=== PATIENT | female | born 1990 | race Caucasian/White ===

== ENCOUNTER → 2023-04-24 12:00 | Outpatient (CLI) | payer MEDICAID, SELFPAY ==
[2023-04-24 18:58] LABS: Basophils # 0.1 K/mm3 (0-0.2); Basophils % 0.5 % (0.1-2.0); Eosinophils # 0.2 K/mm3 (0.0-0.4); Eosinophils % 1.8 % (0.1-12.0); Hematocrit 48.1 % (37.0-47.0); Hemoglobin 15.8 g/dL (12.2-16.2); Lymphocytes % 18.4 % (10-50); Mean Corpuscular HGB Conc 32.8 g/dL (31.8-35.4); Mean Corpuscular Hemoglobin 28.2 pg (27.0-31.2); Mean Platelet Volume 10.2 fl (7.4-10.4); Monocytes # 0.5 K/mm3 (0.1-1.0); Monocytes % 4.2 % (1.7-9.3); Neutrophils # 8.2 K/mm3 (1.8-7.8); Neutrophils % 75.1 % (37.0-80.0); Platelet Count 347 K/mm3 (142-424); Red Blood Count 5.59 M/mm3 (4.20-5.40); Red Cell Distribution Width 13.6 % (11.5-17.5); White Blood Count 10.9 K/mm3 (4.8-10.8)
[2023-04-24 19:07] LABS: Alanine Aminotransferase 18 U/L (12-78); Albumin Level 4.4 g/dl (3.5-5.0); Albumin/Globulin Ratio 1.4 (1.1-1.8); Alkaline Phosphatase 83 U/L (38-126); Anion Gap 15.4 mEq/L (5-15); Aspartate Amino Transferase 23 U/L (14-36); Bilirubin,Total 0.4 mg/dl (0.2-1.3); Blood Urea Nitrogen 11 mg/dl (7-17); Calcium 9.1 mg/dl (8.4-10.2); Carbon Dioxide 24 mmol/L (22.0-30.0); Chloride 106 mmol/L (98-107); Chol/HDL Ratio 3.5 (1-3.5); Cholesterol 201 mg/dl (140-200); Estimated Glomerular Filt Rate 97 ml/min (>60); GFR (African American) 117 ML/MIN (>60); Globulin 3.2 g/dL (1.3-3.2); Glucose 111 mg/dl (74-100); HDL Cholesterol 58 mg/dl (40-60); Potassium 4.4 mmoL/L (3.5-5.1); Sodium 141 mmol/L (136-145); Total Protein,Serum 7.6 g/dl (6.3-8.2); Triglycerides 203 mg/dl (30-150); VLDL Cholesterol 41 mg/dL (0-40)
[2023-04-24 19:22] LABS: Direct LDL Cholesterol 108.17 mg/dL (100-129)
[2023-04-24 19:39] LABS: Thyroid Stimulating Hormone 1.06 uIU/mL (0.465-4.68)
== END ==
PROVIDERS: PCP Nurse Practitioner Family; Visit Provider Nurse Practitioner Family
DX: F41.9 Anxiety disorder, unspecified (principal); E55.9 Vitamin D deficiency, unspecified; Z79.899 Other long term (current) drug therapy
CPT/HCPCS: 80053; 80061; 82306; 84443; 85025

== ENCOUNTER 2024-07-07 14:23 | Outpatient (CLI) | payer MEDICAID, SELFPAY ==
[2024-07-07 18:49] LABS: Alanine Aminotransferase 19 U/L (12-78); Albumin Level 4.1 g/dl (3.5-5.0); Albumin/Globulin Ratio 1.6 (1.1-1.8); Alkaline Phosphatase 67 U/L (38-126); Anion Gap 11.2 mEq/L (5-15); Aspartate Amino Transferase 25 U/L (14-36); Bilirubin,Total 0.4 mg/dl (0.2-1.3); Blood Urea Nitrogen 12 mg/dl (7-17); Carbon Dioxide 24 mmol/L (22.0-30.0); Chloride 108 mmol/L (98-107); Chol/HDL Ratio 3.8 (1-3.5); Cholesterol 157 mg/dl (140-200); Estimated Glomerular Filt Rate 96 ml/min (>60); GFR (African American) 117 ML/MIN (>60); Globulin 2.5 g/dL (1.3-3.2); Glucose 95 mg/dl (74-100); HDL Cholesterol 41 mg/dl (40-60); Potassium 4.2 mmoL/L (3.5-5.1); Sodium 139 mmol/L (136-145); Total Protein,Serum 6.6 g/dl (6.3-8.2); Triglycerides 124 mg/dl (30-150); VLDL Cholesterol 25 mg/dL (0-40)
[2024-07-07 19:01] LABS: Direct LDL Cholesterol 99.19 mg/dL (100-129)
[2024-07-07 19:06] LABS: 25-OH Vitamin D, Total 31.8 ng/mL (30-100)
[2024-07-07 19:14] LABS: Red Blood Count 4.89 M/mm3 (4.20-5.40); White Blood Count 7.7 K/mm3 (4.8-10.8)
[2024-07-07 19:15] LABS: Basophils % 0.5 % (0.1-2.0); Eosinophils # 0.2 K/mm3 (0.0-0.4); Eosinophils % 1.9 % (0.1-12.0); Hematocrit 41.9 % (37.0-47.0); Lymphocytes # 1.5 K/mm3 (0.7-4.5); Lymphocytes % 19.4 % (10-50); Mean Corpuscular HGB Conc 33.4 g/dL (31.8-35.4); Mean Corpuscular Hemoglobin 28.6 pg (27.0-31.2); Mean Corpuscular Volume 85.7 fl (81-99); Mean Platelet Volume 11.5 fl (7.4-10.4); Monocytes # 0.7 K/mm3 (0.1-1.0); Monocytes % 8.7 % (1.7-9.3); Neutrophils # 5.4 K/mm3 (1.8-7.8); Neutrophils % 69.2 % (37.0-80.0); Platelet Count 261 K/mm3 (142-424); Red Cell Distribution Width 12.8 % (11.5-17.5)
[2024-07-07 19:20] LABS: Thyroid Stimulating Hormone 1.86 uIU/mL (0.465-4.68)
== END 2024-07-07 23:59 | disposition home or self-care (01) ==
LOC: LAB.DROPOF 07-08 10:52
PROVIDERS: PCP Nurse Practitioner Family; Visit Provider Nurse Practitioner Family
DX: L30.9 Dermatitis, unspecified (principal); Z68.38 Body mass index [BMI] 38.0-38.9, adult; R61 Generalized hyperhidrosis; F41.9 Anxiety disorder, unspecified
CPT/HCPCS: 80050; 80053; 80061; 82306; 84443; 85025

== ENCOUNTER 2024-09-15 11:23 | Outpatient (CLI) | payer MEDICAID, SELFPAY ==
--- NOTE | 2024-09-15 11:30 | XR_ITS ---
FINAL REPORT CLINICAL HISTORY: Left Elbow pain COMPARISON: None FINDINGS: LEFT ELBOW: 3 images of the left elbow were obtained. There is no evidence of fracture or dislocation. The joint spaces are intact. There is a needle fragment in the soft tissues adjacent to the medial epicondyle that measures 12 mm in length. IMPRESSION: No acute bony abnormality. Needle fragment in the soft tissues adjacent to the medial epicondyle, 12 mm in length. Reviewed, Interpreted and Dictated by Eddi Galindo MD Transcribed by Aurea Casillas Authenticated and [facility]
== END 2024-09-15 23:59 | disposition home or self-care (01) ==
LOC: RAD 11:24
PROVIDERS: PCP Nurse Practitioner Family; Visit Provider Physician Assistant Surgical
DX: M25.522 Pain in left elbow (principal)
CPT/HCPCS: 73080

== ENCOUNTER → 2024-09-16 06:36 | Outpatient (CLI) | payer MEDICAID, SELFPAY | LOC: SL 06:36 | PROVIDERS: PCP Nurse Practitioner Family; Visit Provider Nurse Practitioner Family | DX: G47.33 Obstructive sleep apnea (adult) (pediatric) (principal); R06.83 Snoring; R40.0 Somnolence | CPT/HCPCS: G0399 ==

== ENCOUNTER 2024-09-29 11:45 | Outpatient (CLI) | payer MEDICAID, SELFPAY ==
[2024-09-29 19:48] LABS: Basophils # 0.1 K/mm3 (0-0.2); Basophils % 0.5 % (0.1-2.0); Eosinophils # 0.2 K/mm3 (0.0-0.4); Eosinophils % 1.8 % (0.1-12.0); Hematocrit 42.3 % (37.0-47.0); Lymphocytes # 1.7 K/mm3 (0.7-4.5); Lymphocytes % 16.8 % (10-50); Mean Corpuscular HGB Conc 33.1 g/dL (31.8-35.4); Mean Corpuscular Hemoglobin 28.8 pg (27.0-31.2); Mean Platelet Volume 11.5 fl (7.4-10.4); Monocytes # 0.6 K/mm3 (0.1-1.0); Monocytes % 6.4 % (1.7-9.3); Neutrophils # 7.4 K/mm3 (1.8-7.8); Neutrophils % 74.2 % (37.0-80.0); Platelet Count 315 K/mm3 (142-424); Red Blood Count 4.86 M/mm3 (4.20-5.40)
[2024-09-29 21:23] LABS: Alanine Aminotransferase 20 U/L (12-78); Albumin Level 4.2 g/dl (3.5-5.0); Albumin/Globulin Ratio 1.8 (1.1-1.8); Alkaline Phosphatase 72 U/L (38-126); Anion Gap 11.4 mEq/L (5-15); Aspartate Amino Transferase 22 U/L (14-36); Bilirubin,Total 0.4 mg/dl (0.2-1.3); Blood Urea Nitrogen 10 mg/dl (7-17); Calcium 8.9 mg/dl (8.4-10.2); Carbon Dioxide 24 mmol/L (22.0-30.0); Chloride 106 mmol/L (98-107); Chol/HDL Ratio 3.4 (1-3.5); Cholesterol 166 mg/dl (140-200); Estimated Glomerular Filt Rate 115 ml/min (>60); GFR (African American) 139 ML/MIN (>60); Globulin 2.4 g/dL (1.3-3.2); Glucose 83 mg/dl (74-100); HDL Cholesterol 49 mg/dl (40-60); Potassium 4.4 mmoL/L (3.5-5.1); Sodium 137 mmol/L (136-145); Total Protein,Serum 6.6 g/dl (6.3-8.2); Triglycerides 139 mg/dl (30-150); VLDL Cholesterol 28 mg/dL (0-40)
[2024-09-29 21:34] LABS: Direct LDL Cholesterol 87.73 mg/dL (100-129)
[2024-09-29 21:42] LABS: T4 (Thyroxine) 12.3 ug/dl (5.53-11.0)
[2024-09-29 21:55] LABS: Thyroid Stimulating Hormone 1.13 uIU/mL (0.465-4.68)
[2024-09-29 21:58] LABS: HIV Combo NEGATIVE (Negative)
[2024-09-29 22:06] LABS: Hepatitis C Ab Qual. W/ RFX REACTIVE (Negative)
[2024-10-01 08:48] LABS: Hep A Ab, IgM Negative (Negative); Hep A Ab, Total Positive (Negative); Hep B Core Ab, Total Negative (Negative); Hep B Surface Ab, Qual Reactive (.); Hepatitis B Surface Antigen Negative (Negative)
== END 2024-09-29 23:59 | disposition home or self-care (01) ==
LOC: LAB.DROPOF 09-30 13:16
PROVIDERS: PCP Nurse Practitioner Family; Visit Provider Nurse Practitioner Family
DX: E66.01 Morbid (severe) obesity due to excess calories (principal); Z11.59 Encounter for screening for other viral diseases; Z11.4 Encounter for screening for human immunodeficiency virus [HIV]; E78.5 Hyperlipidemia, unspecified
CPT/HCPCS: 80053; 80061; 84436; 84443; 85025; 86704; 86706; 86708; 86709; 86803; 87340; 87389; 87522; 87902